=== PATIENT | female | born 1965 | race Caucasian/White ===

== ENCOUNTER 2024-09-14 10:29 | Emergency (ER) | payer BC, SELFPAY ==
--- NOTE | ~2024-09-14 | XR_ITS ---
EXAMINATION: XR chest 2V DATE: 09/14/2024 12:21 INDICATION: Back pain TECHNIQUE: PA and lateral views of the chest were obtained. COMPARISON: None FINDINGS: The lungs are clear with no focal airspace opacities, pulmonary edema, pleural effusion or pneumothor ax. The cardiomediastinal silhouette is normal. Surgical clips at the left axilla suggesting prior ly mph node dissection. Proximal tip in IVC filter projecting to the right of the L1-L2 disc space in ex pected position. IMPRESSION: 1. No acute cardiopulmonary disease. Reviewed, dictated and finalized at location A.
--- NOTE | ~2024-09-14 | CT_ITS ---
EXAMINATION: CT abdomen pelvis w con DATE: 09/14/2024 12:20 INDICATION: Flank pain TECHNIQUE: Computed tomography (CT) of the abdomen and pelvis was performed without intravenous contr ast. Automated exposure control and iterative reconstruction technique were employed. The dose-length product was 369.47 mGy-cm. COMPARISON: None FINDINGS: Lung bases are clear. Arch size is normal. No pericardial or pleural effusion. Liver, gallbladder, sp tracy, pancreas and bilateral adrenal glands are normal. There are small regions of cortical scarring at the both kidneys likely sequela prior infection or infarction. 1 cm left renal cyst. IVC filter wi th proximal tip at the level of the confluence with the left renal vein. Normal retrocecal appendix. Bowels are unremarkable with no abnormal wall thickening or obstruction. Bladder is normal. Calcified uterine fibroid. Bilateral adnexa are unremarkable. No free intraperitoneal gas or fluid. No patholo gically enlarged abdominal or pelvic lymphadenopathy. Partially visualized antegrade intramedullary r ods with interlocking intertrochanteric screws at the first proximal aspects of both femurs. Mild lum bar dextrocurvature with moderate to severe spondylosis. Transitional bilateral hypoplastic rib beari ng thoracolumbar segment and transitional lumbosacral segment, lumbar some the left and sacralized on the right. Old healed fractures of a couple upper right-sided lumbar transverse processes. IMPRESSION: 1. No acute intra-abdominal/pelvic process. 2. Small calcified uterine fibroid. 3. IVC filter in expected position. Reviewed, dictated and finalized at location A.
[2024-09-14 11:00] VITALS: BP 147/101; PULSE 72; RESP 16; TEMP 36.7; O2SAT 100
--- OUTSIDE RECORDS SUMMARY | 2024-09-14 11:02 | XMS_ITS | Patient Health Record ---
Author Organization [facility] Address [address] [place] [address] Care Team Providers Care Joint Maker Machine Name Role Phone Mely Brown Primary Care Provider Allergies No Known Allergies Reason For Referral No Information Medications Medication SIG (Take, Route, Frequency, Duration) Notes Start Date End Date Status busPIRone HCl 10 MG 1 tablet Orally three times per day for 30 days Would like medications delivered to [address] [place] [address] 05/10/2024 Active lamoTRIgine 25 MG 2 tablets Orally Once daily at bedtime (DC if rash) for 30 days Would like medications delivered to [address] [place] [address] Active traZODone HCl 150 MG 1 tablet at bedtime Orally Once a day for 30 days Would like medications delivered to [address] [place] [address] Active Eliquis 5 MG as directed Orally twice daily Active oxyCODONE HCl 5 MG/5ML 5 mL as needed Orally every 6 hrs Active Social History Tobacco Use: Social History Observation Description Date Details (start date - stop date) Current Smoker NA - NA Sex Assigned At : Social History Observation Description Sex Assigned At Female Dont use, Tobacco Use/Smoking Question Answer Notes Are you a current smoker Tobacco Control (Standard) Question Answer Notes Tobacco use: Current smoker How often do you smoke cigarettes? Every day How many cigarettes a day do you smoke? 6-10 Section Notes: Per [facility]: 01/08/2022 946.0 15 NA Andrew Faustin 12/21/2021 oxyCODONE HCL 946.0 15 5 MG/5 ML 94.60 [place], Andrew 12/21/2021 fentaNYL TRANSDERMAL SYSTEM 10.0 30 100 MCG/1 HR 240.0 [place], Andrew 12/07/2021 oxyCODONE HCL 500.0 14 5 MG/5 ML 53.57 [place], Andrew 12/07/2021 fentaNYL TRANSDERMAL SYSTEM 5.0 15 100 MCG/1 HR 240.0 [place]: 01/08/2022 946.0 15 NA [place], Andrew 12/21/2021 oxyCODONE HCL 946.0 15 5 MG/5 ML 94.60 [place], Andrew 12/21/2021 fentaNYL TRANSDERMAL SYSTEM 10.0 30 100 MCG/1 HR 240.0 [place], Andrew 12/07/2021 oxyCODONE HCL 500.0 14 5 MG/5 ML 53.57 ThorAndrew pedroza 12/07/2021 fentaNYL TRANSDERMAL SYSTEM 5.0 15 100 MCG/1 HR 240.0 Thor[place]: 01/08/2022 946.0 15 NA [place], Andrew 12/21/2021 oxyCODONE HCL 946.0 15 5 MG/5 ML 94.60 [place] Andrew 12/21/2021 fentaNYL TRANSDERMAL SYSTEM 10.0 30 100 MCG/1 HR 240.0 [place] Andrew 12/07/2021 oxyCODONE HCL 500.0 14 5 MG/5 ML 53.57 [place], Andrew 12/07/2021 fentaNYL TRANSDERMAL SYSTEM 5.0 15 100 MCG/1 HR 240.0 [facility] Andrew Problems Problem Type SNOMED Code ICD Code Onset Dates Problem Status W/U Status Risk Notes Problem Cannabis abuse (46775173) Cannabis abuse, uncomplicated (F12.10) Active confirmed Problem Anxiety (73826238) Anxiety (F41.9) Active confirmed Problem Generalized anxiety disorder (59952335) TOPHER (generalized anxiety disorder) (F41.1) 10/29/19 Active confirmed Problem History of psychiatric disorder (564924015) History of bipolar disorder (Z86.59) 10/29/19 Active confirmed reports history of diagnosis given age 17. Not medicated since mid 20s Problem Cellulitis (139931782) Cellulitis (L03.90) Active confirmed Problem Adult health examination (516732132) Routine adult health maintenance (Z00.00) Active confirmed Problem Homeless (93566797) Homeless (Z59.00) Active confirmed Encounters Encounter Location Date Provider Diagnosis [address] [address] 05/10/2024 Mely Brown TOPHRE (generalized anxiety disorder) F41.1 and History of bipolar disorder Z86.[address] [address] 06/18/2024 Mely Brwon Assessments Encounter Date Diagnosis (ICD Code) Assessment Notes Treatment Notes Treatment Clinical Notes Section Notes 05/10/2024 TOPHER (generalized anxiety disorder) (ICD-10 - F41.1) 05/10/2024 History of bipolar disorder (ICD-10 - Z86.59) reports history of diagnosis given age 17. Not medicated since mid 20s Plan Of Treatment No Information Insurance Providers Payer Name Payer Address Payer Phone Subscriber Number Group Number Insured Name Patient Relationship to Insured Coverage Start Date Coverage End Date [facility] [address] [place] [phone] [id number] 1 Tamar Armstrong Self - patient is the insured 2 [facility] [address] [place] [phone] [id number] 1 Tamar Armstrong Self - patient is the insured 2 Medical (General) History Medical History History ICD Code throat cancer anxiety depression Surgical History Surgery Date(Month/Year) Trachea 2021 Femor-rods and pins in both leg 1979,s reopen throat bilateral vein repair on legs Hospitalization History Reason Date(Month/Year) Cellulitis in right leg 2021 See surgeries
--- OUTSIDE RECORDS SUMMARY | 2024-09-14 11:02 | XMS_ITS | Data Portability ---
Author Organization [facility] Angl[facility] Address [address] [place] [address] Care Team Providers Care Junior Staff Accountant Name Role Phone YOON KIRKPATRICK Primary Care Provider Unavailabl e Assessment No assessment recorded. Plan of Treatment Reminders Order Date Submit Date Provider Last Modified By Organization Details Last Modified Time Details Appointments ANY 2024 10:15A Jeffrey Garcia MD Not available Not available Not available ANY 2024 03:45P Jeffrey Kirkpatrick MD Not available Not available Not available Lab TSH + free T4, serum 2023 024 ZEESHAN [facility], [address], [place] [address] [address], [place], [address], 03/07/2024 06:22:20 HbA1c (hemoglo bin A1c), blood 2023 024 [email or web address] In-Office Order, Internal Use Only DO Not Attach Compendium DO Not Attach Compendium, Do Not Delete/merge, [id number] 12/05/2023 11:43:30 TSH + free T4, serum 2023 024 ZEESHAN [facility], [address] [facility], [address], [place], [address], 12/08/2023 08:26:51 Referral otolaryn gologist referral 2024 025 delvin Sandoval MD, [address] [place], [address], 09/11/2024 11:04:10 endocrin ology referral - Was on thyroid suppleme nt two yrs ago. Recently restarte d 2023 024 tim Lema, [address], [place], [address], 07/31/2024 13:50:58 Procedures None recorded . Surgeries None recorded . Imaging None recorded . Medication Orders neomycin -polymyx in-hydro cris 3.5 mg-10,00 0 unit/mL- 1 % ear drops,bustamante sp 2024 [facility]AN [id number], [address] [place], [place], [id number], 06/26/2024 18:08:29 compound ed medicati on 2024 025 [facility], [address] [place], [place], [id number], 06/26/2024 17:16:17 dextrome thorphan -guaifen esin 10 mg-100 mg/5 mL oral syrup 2024 025 [facility], [address] [place], [place], [id number], 06/26/2024 17:16:16 albutero l sulfate HFA 90 mcg/actu ation aerosol inhaler 2024 025 [facility], [address] [place], [place], [id number], 06/26/2024 17:16:13 levothyr oxine 50 mcg tablet 2024 025 [facility], [address] [place], [place], [id number], 06/26/2024 17:16:14 compound ed medicati on 2023 025 [facility], [address] [place], [place], [id number], 06/26/2024 18:05:53 compound ed medicati on 2023 025 [facility], [address] [place], [place], [id number], 06/26/2024 18:06:38 Eliquis 5 mg tablet 2023 024 [facility]6410, [address] [place], [place], [id number], 03/06/2024 10:50:20 oxycodon e 10 mg tablet 2023 [facility]11137, [address] [place], [place], [id number], 12/05/2023 11:58:11 Patient TargetsNo targets recorded. Patient Instructions Encounter Date Encounter Id Patient Instructions Last Modified By Organization Details Last Modified Time 12/05/2023 [id number] learning about high blood sugar [email or web address] Not available 12/05/2023 11:43:27 hypothyroidism: care instructions [email or web address] Not available 12/05/2023 11:43:27 hepatitis C: car e instructions [email or web address] Not available 12/05/2023 11:43:27 learning about hepatitis C Not available 12/05/2023 11:43:27 03/06/2024 [id number] A healthy lifestyle: care instructions Not available 03/06/2024 13:19:42 hypothyroidism: care instructions [email or web address] Not available 03/06/2024 10:50:08 Reason for Referral Endocrinology Referral for H ypothyroidism Was on thyroid supplement two yrs ago. Recently restarted Referring Physician: Yoon Kirkpatrick, Internal Medicine, Encounter Date: 12/05/2023 City Manager Referral fo r Otitis externa Recent onset right ear pain similar to when laryngeal ca discovered in 2020 Referring Physician: Yoon Kirkpatrick, Internal Medicine, Encounter Date: 06/26/2024 Results Created Date Observation Date Name Description Value Unit Range Abnormal Flag Note LastModifiedBy Organization Detail LastModifiedTime 08/31/19 24 09/07/2023 COMPL IANCE DRUG WADE SIS, UR summary report (summary) FINAL ===== ===== ===== ===== ===== ===== ===== ===== ===== ===== ===== ===== ===== === TOXAS SURE COMP DRUG WADE SIS,U R ===== ===== ===== ===== ===== ===== ===== ===== ===== ===== ===== ===== ===== === Speci men Alert Note: Urina ry creat inine is low; abili ty to detec t some drugs may be compr omise d. Inter pret resul ts with cauti on. ===== ===== ===== ===== ===== ===== ===== ===== ===== ===== ===== ===== ===== === Test Resul t Flag Units Drug Prese nt Alcoh ol, Ethyl 0.043 g/dL Sourc es of ethyl alcoh ol inclu de alcoh olic bever ages or as a ferme ntati on produ ct of gluco se; gluco se was not detec hipolito in this speci men. Ethyl alcoh ol resul t shoul d be inter prete d in the chivo xt of all avail able clini josie and behav ioral infor matio n. Carbo xy-TH C 520 ng/mg creat Carbo xy-TH C is a metab olite of tetra hydro canna binol (THC) . Sourc e of THC is most commo nly herba l marij uana or marij uana- based produ cts, but THC is also prese nt in a sched uled presc ripti on medic ation . Trace amoun ts of THC can be prese nt in hemp and canna bidio l (CBD) produ cts. This test is not inten ded to disti nguis h betwe en delta -9-te trahy droca nnabi nol, the predo minan t form of THC in most herba l or marij uana- based produ cts, and delta -8-te trahy droca nnabi nol. ===== ===== ===== ===== ===== ===== ===== ===== ===== ===== ===== ===== ===== === Test Resul t Flag Units Ref Range Creat inine 10 L mg/dL >=20 ===== ===== ===== ===== ===== ===== ===== ===== ===== ===== ===== ===== ===== === Decla red Medic ation s: Medic ation list was not provi ded. ===== ===== ===== ===== ===== ===== ===== ===== ===== ===== ===== ===== ===== === For clini josie consu ltati on, pleas e call . ===== ===== ===== ===== ===== ===== ===== ===== ===== ===== ===== ===== ===== === Not Available [facility] ([facility]) [address] [facility], [place], [address], 09/07/2023 19:09:05 05/01/09/07/2023 COMPL IANCE DRUG WADE SIS, UR pdf . Not Available [facility] ([facility]) [address], [place], [address], 09/07/2023 19:09:05 09/19/19 24 09/19/2023 HCV GENOT YPE REFLE X NS5A please note: Commen t This test was devel oped and its perfo rmanc e fozia cteri stics deter mined by [facility]. It has not been clear ed or appro caitlyn by the U.S. Food and Drug Admin istra tion. The FDA has deter mined that such clear ance or appro daily is not neces mary. This test is used for clini josie purpo ses. It shoul d not be regar ded as inves tigat ional or for resea rch. Not Available [facility] [address], [place], [address], 09/25/2023 06:42:25 09/19/19 24 09/25/2023 HCV GENOT YPE REFLE X NS5A hepatitis C genotype 2b Not Available [facility] [address], [place], [address], 09/25/2023 06:42:25 09/19/19 24 09/25/2023 REFLE X TEST INFOR MATIO N reflex test information Commen t Refle x test not indic ated. Not Available [facility] [address], [place], [address], 09/25/2023 06:42:26 12/05/19 24 12/05/2023 HbA1c (hemo globi n A1c), blood HbA1c 5 Not Available In-Office Order Internal Use Only DO Not Attach Compendium DO Not Attach Compendium, Do Not Delete/merge, [id number] 12/05/2023 11:37:39 12/07/19 24 12/08/2023 TSH+F REE T4 TSH 56.000 uIU/m L 0.450- 4.500 above high normal Not Available [facility] ([facility]) [address] [place], [address], 12/08/2023 08:26:51 12/07/19 24 12/08/2023 TSH+F REE T4 T4,free(dire ct) 0.48 NG/dL 0.82-1 .77 below low normal Not Available [facility] ([facility]) [address] [place], [address], 12/08/2023 08:26:51 03/06/20 24 03/07/2024 TSH+F REE T4 TSH 13.100 uIU/m L 0.450- 4.500 above high normal Not Available [facility] ([facility]) [address] [place], [address], 03/07/2024 06:22:20 03/06/20 24 03/07/2024 TSH+F REE T4 T4,free(dire ct) 0.96 NG/dL 0.82-1 .77 Not Available [facility] ([facility]) [address] [place], [address], 03/07/2024 06:22:20 02/27/2002/24/2024 MAMMO , scree drake, bilat eral No observ ation record ed. [email or web address] [facility] [address] [place], [address], 03/09/2024 17:21:57 Result Notes None recorded. Problems Name Problem SNOMED Code Status Onset Date Resolution Date Notes Provider Name and Address Organization Details Recorded Time History of malignan t neoplasm of larynx 644869586 Active 2020 Yoon Kirkpatrick MD Attn: Aminah gonzalez,[address] [place], [address], [facility] 2 12:19:23 History of total hysterec shreya 750249805 Active 2021 Yoon Kirkpatrick MD Attn: Aminah gonzalez,[address] [place], [address], [place] [facility] 2 12:20:08 Excision of right lobe of thyroid gland Completed 202010/21/2021 Removal Reason: supraglo ttic malignan cy Yoon Kirkpatrick MD Attn: Aminah gonzalez,[address], [place], [address], [place] [facility] 2 12:23:48 Constipa tion 16524033 Active 2021 Yoon Kirkpatrick MD Attn: Aminah gonzalez,[address] [facility], [place], [address], [place] [facility] 2 12:36:26 History of deep vein thrombos is 632198754 Active 2021 Yoon Kirkpatrick MD Attn: Aminah gonzalez,[address] [facility], [place], [address], [place] [facility] 2 12:37:29 Excessiv e salivati on 82921152 Active 2021 Yoon Kirkpatrick MD Attn: Aminah gonzalez,[address] [facility], [place], [address], [place] [facility] 2 12:44:59 Chronic postoper ative pain 59385559773 9103 Active 2021 Yoon Kirkpatrick MD Attn: Aminah gonzalez,[address] [facility], [place], [address], [place] [facility] 2 12:46:12 Cough 01849024 Active 2022 Yoon Kirkpatrick MD Attn: Barrysheron gonzalez,[address] [facility], [place], [address], [place] [facility] 3 12:15:54 Medicati on monitori ng Active 2022 Yoon Kirkpatrick MD Attn: Aminah lisa,[address] [facility], [place], [address], [place] [facility] 3 17:40:25 Left flank pain 738374374 Active 2022 Yoon Kirkpatrick MD Attn: Aminah gonzalez,[address] [facility], [place], [address], [place] [facility] 3 11:21:03 Allergic rhinitis 67191916 Active 2022 Yoon Kirkpatrick MD Attn: Barrysheron gonzalez,[address] [facility], [place], [address], [place] [facility] 3 01:00:04 [facility] y 082498443 Active 2023 Yoon Kirkpatrick MD Attn: Barrysheron gonzalez,[address] [facility], [place], [address], [place] [facility] 4 11:29:40 Venous varices 553701771 Active 2023 Yoon Kirkpatrick MD Attn: Aminah lisa,[address] [facility], [place], [address], [place] [facility] 4 11:34:02 Hypothyr oidism 43486251 Active 2023 Yoon Kirkpatrick MD Attn: Barrysheron gonzalez,[address] [facility], [place], [address], [place] [facility] 4 17:13:35 Increase d liver function 97124914 Active 2023 Yoon Kirkpatrick MD Attn: Aminah lisa,[address] [facility], [place], [address], [place] [facility] 4 17:20:46 Hypergly cemia 36866910 Active 2023 Yoon Kirkpatrick MD Attn: Aminah gonzalez,[address] [facility], [place], [address], [place] [facility] 4 11:37:24 Active immuniza tion Active 2024 Yoon Kirkpatrick MD Attn: Aminah gonzalez,[address] [facility], [place], [address], [place] [facility] 5 17:15:47 Otitis externa 0698818 Active 2024 Yoon Kirkpatrick MD Attn: Accountin g,[address] [facility], [place], [address], [place] [facility] 5 18:07:09 Acute sinusiti s 87059067 Active Raul Thao PA-C Attn: Accountin g,[address] [facility], [place], [place], [address] [place] [address], [place] [facility] 5 10:18:50 Chronic obstruct sesar pulmonar y disease 23830337 Active Raul Thao PA-C Attn: Accountin g,[address] [facility], [place], [address], [place] [facility] 5 10:18:50 Tobacco user 790220118 Active Raul Thao PA-C Attn: Accountin g,[address] [facility], [place], [place], [address] [place] [address], [place] [facility] 5 10:18:50 Knee pain Active Raul Thao PA-C Attn: Accountin g,[address] [facility], [place], [address], [place] [facility] 5 10:18:50 Essentia l hyperten daria 61763636 Active Raul Thao PA-C Attn: Accountin g,[address] [facility], [place], [address], [place] [facility] 5 10:18:50 Viral hepatiti s C 85478686 Active Raul Thao PA-C Attn: Accountin g,[address] [facility], [place], [address], [place] [facility] 5 10:18:50 Insomnia 166509296 Active Raul Thao PA-C Attn: Accountin g,[address] [facility], [place], [address], [place] [facility] 5 10:18:50 Problem Notes None recorded. Procedures Surgical History Date Name Laterality Status Provider Name and Address Organization Details Recorded Time 09/20/19 24 Flexible Laryngoscopy completed Manas Garcia MD [address] [place], [address], [place] - COUNTS INCLUDE 234 BEDS AT [facility] 09/20/2023 11:06:35 Joint Replacement completed Shayla Mendieta [place] 10/25/2014 09:55:15 Caesarean Section completed Shayla Mendieta [place] 10/25/2014 09:55:15 Imaging Results Imaging Date Name Status LastModified by Organiz ation Details LastModified Time 02/24/2024 MAMMO, screening, bilateral completed jnicolrn [facility] [address], [place], [address], 03/09/2024 17:21:57 Procedure Notes None recorded. Medical Equipment None Reported. Allergies No known drug allergies Medications Name Sig Start Date Stop Date Status Note LastModified by Organization Details LastModified Time compounded medication SWISH AND SWALLOW 15 ML BY MOUTH EVERY 2 HOURS NEEDED 06/26 completed Not Available Not Available Not Available antacid/dip hen/lido 111 mouthwas SWISH AND SWALLOW 15 ML BY MOUTH EVERY 2 HOURS NEEDED active Not Available Not Available No t Available compounded medication SWISH AND SWALLOW 15 ML BY MOUTH EVERY 2 HOURS NEEDED 06/26 completed Not Available Not Available Not Available mdryl12.5mg /5mlantacli do2%111 SWISH AND SWALLOW 15 ML BY MOUTH EVERY 2 HOURS NEEDED 09/21 completed Not Available Not Available Not Available compounded medication SWISH AND SWALLOW 15 ML BY MOUTH EVERY 2 HOURS NEEDED 06/26 completed Not Available Not Available Not Available compounded medication SWISH AND SWALLOW 15 ML BY MOUTH EVERY 2 HOURS NEEDED 2024 active Not Available Not Available Not Avai lable amoxicillin 500 mg capsule TAKE 1 CAPSULE BY MOUTH FOUR TIMES DAILY 10/21 completed Not Available Not Available Not Available Protonix 40 mg tablet,danika yed release Take 1 tablet every day by oral route before meals. 07/08 completed Not Available Not Available Not Available doxycycline hyclate 100 mg capsule 03/09 /2023 completed Not Available Not Available Not Available clindamycin HCl 300 mg capsule TAKE 1 CAPSULE BY MOUTH EVERY 6 HOURS 07/08 completed Not Available Not Available Not Available trazodone 50 mg tablet TAKE ONE TABLET BY MOUTH EVERY NIGHT AT BEDTIME NEEDED FOR SLEEP 03/06 completed Not Available Not Available Not Available prednisone 20 mg tablet TAKE 2 TABLETS BY MOUTH TWICE DAILY FOR 2 DAYS, THEN 1 TWICE DAILY FOR 5 DAYS, THEN 1/2 TWICE DAILY FOR 2 DAYS, THEN 1/2 ON DAY 10 10/21 completed Not Available Not Available Not Available hydroxyzine pamoate 50 mg capsule active Not Available Not Available N ot Available oxycodone 5 mg/5 mL oral solution TAKE 10 ML BY MOUTH FOUR TIMES DAILY NEEDED 09/21 completed Not Available Not Available Not Available bacitracin zinc 500 unit/gram topical ointment 07/08 completed Not Available Not Available Not Available ciprofloxac in 500 mg tablet Take 1 tablet every 12 hours by oral route for 10 days. 10/21 completed Not Available Not Available Not Available sulfamethox azole 800 mg-trimetho prim 160 mg tablet TAKE 1 TABLET BY MOUTH TWICE DAILY 03/18 completed Not Available Not Available Not Available quetiapine 100 mg tablet 09/21 completed Not Available Not Available Not Available Depo-Medrol 80 mg/mL suspension for injection 10/21 completed Not Available Not Available Not Available levothyroxi ne 25 mcg tablet TAKE 1 TABLET BY MOUTH EVERY DAY active Not Available Not Available No t Available lamotrigine 25 mg tablet active Not Available Not Available Not Available amoxicillin 400 mg-potassiu m clavulanate 57 mg/5 mL oral suspension TAKE 5 ML BY MOUTH TWICE DAILY FOR 10 DAYS 07/08 completed Not Available Not Available Not Available propranolol 10 mg tablet 07/08 completed Not Available Not Available Not Available fentanyl 100 mcg/hr transdermal patch APPLY 1 PATCH TOPICALLY TO THE SKIN EVERY 72 HOURS 07/08 completed Not Available Not Available Not Available trazodone 100 mg tablet 07/08 completed Not Available Not Available Not Available baclofen 10 mg tablet Take 1 tablet 3 times a day by oral route as needed for 30 days. 10/21 completed Not Available Not Available Not Available benzonatate 100 mg capsule TAKE 1 CAPSULE BY MOUTH THREE TIMES DAILY NEEDED 08/03 completed Not Available Not Available Not Available hydrocortis one 1 % topical cream APPLY TOPICALLY TO THE AFFECTED AREA TWICE DAILY 07/08 completed Not Available Not Available Not Available levothyroxi ne 50 mcg tablet TAKE 1 TABLET BY MOUTH EVERY DAY active Not Available Not Available No t Available trazodone 150 mg tablet 03/06 completed Not Available Not Available Not Available lisinopril 10 mg tablet Take 1 tablet every day by oral route in the morning for 30 days. 10/21 completed Not Available Not Available Not Available warfarin 5 mg tablet TAKE 1 TABLET BY MOUTH EVERY DAY 07/08 completed Not Available Not Available Not Available docusate sodium 100 mg capsule TAKE 1 CAPSULE BY MOUTH EVERY DAY 07/08 completed Not Available Not Available Not Available hydroxyzine HCl 25 mg tablet TAKE 1 TABLET BY MOUTH EVERY 6 HOURS NEEDED FOR ANXIETY OR ITCHING 07/08 completed Not Available Not Available Not Available mupirocin 2 % topical ointment APPLY TO AFFECTED AREA TWICE DAILY 07/08 completed Not Available Not Available Not Available fentanyl 25 mcg/hr transdermal patch APPLY 1 PATCH TOPICALLY TO THE SKIN EVERY 72 HOURS FOR 15 DAYS 07/08 completed Not Available Not Available Not Available ibuprofen 100 mg/5 mL oral suspension 07/08 completed Not Available Not Available Not Available albuterol sulfate HFA 90 mcg/actuati on aerosol inhaler INHALE 2 PUFFS BY MOUTH FOUR TIMES DAILY NEEDED active Not Available Not Available No t Available propranolol 20 mg tablet 09/21 completed Not Available Not Available Not Available fentanyl 75 mcg/hr transdermal patch APPLY 1 PATCH TOPICALLY TO THE SKIN EVERY 72 HOURS 09/21 completed Not Available Not Available Not Available cefdinir 300 mg capsule TAKE 1 CAPSULE BY MOUTH EVERY 12 HOURS 12/04 completed Not Available Not Available Not Available fluticasone propionate 50 mcg/actuati on nasal spray,suspe nsion SHAKE LIQUID AND USE 2 SPRAYS IN EACH NOSTRIL DAILY active Not Available Not Available No t Available sertraline 50 mg tablet 07/08 completed Not Available Not Available Not Available naproxen 500 mg tablet TAKE 1 TABLET BY MOUTH EVERY 12 HOURS WITH FOOD OR MILK 10/21 completed Not Available Not Available Not Available neomycin-po lymyxin-hyd rocort 3.5 mg-10,000 unit/mL-1 % ear drops,susp INSTILL 4 DROPS INTO AFFECTED RIGHT EAR(S) BY OTIC ROUTE 3 TIMES PER DAY active Not Available Not Available No t Available Antacid Regular Strength 200 mg-200 mg-20 mg/5 mL oral suspension active Not Available Not Available N ot Available Symbicort 160 mcg-4.5 mcg/actuati on HFA aerosol inhaler Inhale 2 puffs twice a day by inhalatio n route as directed for 30 days. 10/21 completed Not Available Not Available Not Available Mucinex 1,200 mg tablet, extended release TAKE 1 TABLET BY MOUTH TWICE DAILY 07/08 completed Not Available Not Available Not Available oxycodone 10 mg tablet Take 1 tablet 3 times a day by oral route as needed. 2024 active Not Available Not Available Not Avai lable Eliquis 5 mg tablet Take 1 tablet twice a day by oral route. 2023 active Not Available Not Available Not Avai lable M-Dryl 12.5 mg/5 mL oral liquid SWISH AND SPIT 10ML EVERY 4-6 HOURS NEEDED 12/04 completed Not Available Not Available Not Available Chest Congestion Relief DM 10 mg-100 mg/5 mL oral syrup TAKE 10 ML BY MOUTH THREE TIMES DAILY active Not Available Not Available No t Available Vitals Date Recorded Body height Body mass index (BMI) Body weight Heart rate Body temperature Pain severity - 0-10 verbal numeric rating [Score] - Reported Systolic blood pressure Diastolic blood pressure Provider Name and Address Organization Details Last Updated DateTime 4 163.83 cm 26.4 kg/m2 04201.4 1 g 62 /min 97.8 [degF] 0 143 mm[Hg] 79 mm[Hg] Modesta Reveles [place] - [facility] 4 10:56:24 Date Recorded Body height Body mass index (BMI) Body weight Body temperature Heart rate Oxygen saturation Oxygen saturation in Arterial blood by Pulse oximetry Respiratory rate Pain severity - 0-10 verbal numeric rating [Score] - Reported Systolic blood pressure Diastolic blood pressure Provider Name and Address Organization Details Last Updated DateTime 4 163.83 cm 26 kg/m2 04862.2 2 g 97.8 [degF] 60 /min 98 % 98 % 18 /min 0 149 mm[Hg] 80 mm[Hg] Jesica Prakash MA [facility] 4 11:15:16 Date Recorded Body height Body mass index (BMI) Body weight Oxygen saturation Oxygen saturation in Arterial blood by Pulse oximetry Heart rate Systolic blood pressure Diastolic blood pressure Provider Name and Address Organization Details Last Updated DateTime 4 163.83 cm 26 kg/m2 38997.2 2 g 98 % 98 % 60 /min 130 mm[Hg] 82 mm[Hg] Ankita Ryan MA [facility] 4 10:51:04 Date Recorded Body height Body mass index (BMI) Body weight Heart rate Oxygen saturation Oxygen saturation in Arterial blood by Pulse oximetry Systolic blood pressure Diastolic blood pressure Provider Name and Address Organization Details Last Updated DateTime 4 163.83 cm 25.9 kg/m2 80240.0 7 g 77 /min 96 % 96 % 118 mm[Hg] 74 mm[Hg] Reymundo Thao MA [facility] 4 10:14:38 Date Recorded Body height Body mass index (BMI) Body weight Heart rate Body temperature Oxygen saturation Oxygen saturation in Arterial blood by Pulse oximetry Systolic blood pressure Diastolic blood pressure Provider Name and Address Organization Details Last Updated DateTime 5 163.83 cm 26 kg/m2 12320.2 2 g 61 /min 98.1 [degF] 99 % 99 % 138 mm[Hg] 84 mm[Hg] Kirsten Laurent MA [facility] 5 16:19:20 Social History Question Answer Notes LastModified by Organizat ion Details LastModified Time Tobacco Smoking Status Former Smoker Reymundo Thao MA [facility] 03/06/2024 10:10:22 Do You Have An Advance Directive? No Information not available 10/07/2023 Are You Blind Or Do You Have Difficulty Seeing? No Information not available 10/25/2014 What Is Your Level Of Caffeine Consumption? Heavy Information not available 10/25/2014 How Much Tobacco Do You Chew? None Information not available 10/25/2014 Are You Deaf Or Do You Have Serious Difficulty Hearing? No Information not available 10/25/2014 What Type Of Diet Are You Following? REGULAR Information not available 10/25/2014 Which Illicit Or Recreational Drugs Have You Used? No Information not available 10/25/2014 Education 9 Information no t available 10/25/2014 Are There Any Guns Present In Your Home? No Information not available 10/25/2014 Hard Of Hearing Or Deaf In One Or Both Ears? No Information not available 10/25/2014 Legally Blind In One Or Both Eyes? No Information no t available 10/25/2014 Marital Status Single Informatio n not available 10/25/2014 Do You Have A Medical Power Of Auto Wheel Alignment Specialist? Yes Sister Information not available 10/07/2023 What Was The Date Of Your Most Recent Tobacco Screening? 03/06/2024 Information not available 03/06/2024 Performs Monthly Self-breast Exam? No Information no t available 10/25/2014 Seat Belts Used Routinely Yes Information not available 10/25/2014 Smoke Alarm In Home Yes Information not available 10/25/2014 Do You Have Smoke And Carbon Monoxide Detectors In Your Home? Yes Information not available 10/07/2023 Are You Passively Exposed To Smoke? No Information no t available 10/07/2023 How Much Tobacco Do You Smoke? 0.25 PPD Information not available 10/21/2021 General Stress Level High Information not available 10/25/2014 Do You Use Sunscreen Routinely? Yes Information not available 10/25/2014 Has Tobacco Cessation Counseling Been Provided? Yes Information not available 07/08/2022 On What Date Was Tobacco Cessation Counseling Provided? 03/06/2024 Information not available 03/06/2024 Do You Have Difficulty Walking Or Climbing Stairs? Yes Information not available 10/25/2014 Sex: Unknown Functional Status Question Answer Note LastModified by Organizat ion Details LastModified Time Do you or have you ever used any other forms of tobacco or nicotine? No Information not available 07/08/2022 What is your level of alcohol consumption? Occasional Information not available 10/25/2014 Do you have difficulty doing errands alone? No Information not available [id number]|2024-09-14 11:09:00|2024-09-14 11:09:00|ED_ITS|HERMINIO|Health Information Management|[id number]|"HPI - General Adult General Chief complaint: Abdominal Pain Stated complaint: abd pain Time Seen by Provider: 09/14/24 10:42 History of Present Illness HPI narrative: Tamar Armstrong is a 58 y/o female with past medical history of throat cancer status post trach placement in remission, hypothyroidism and previous lower extremity DVT which she is on blood thinners for. She presents today with complaints of having right flank pain that started out of nowhere 2 days ago and she would like the pain is getting worse she reach describes the pain as throbbing and radiating around to her abdomen. She denies any falls any nose trauma or exerting activities prior to this. She denies any spinal tenderness fevers or chills. She denies any urinary symptoms last bowel movement was yesterday and normal. She denies any nausea or vomiting. Related Data Allergies Allergy/AdvReac Type Severity Reaction Status Date / Time No Known Allergies Allergy Verified 09/14/24 11:05 Review of Systems 2 Review of Systems: All systems reviewed & are unremarkable except as noted in HPI and below Exam 2 Narrative: GENERAL: well-nourished, and in no acute distress. HEAD: Normocephalic, atraumatic. EYES: PERRLA and EOMI. ENT: Nares clear, no rhinorrhea or epistaxis. Mucous membranes moist. Oropharynx without tonsillar hypertrophy exudate or other lesions. NECK: Supple. No adenopathy or masses. No carotid bruits or JVD CHEST: Clear to auscultation. No respiratory distress. No wheezes rales or rhonchi HEART: Regular rate and rhythm. No murmur heard. Normal peripheral pulses. ABDOMEN: Soft, nontender, nondistended, normal active bowel sounds. + right flank/ CVA tenderness EXTREMITIES: Normal range of motion. No edema. SKIN: Warm, dry, no rash. NEURO: No focal deficits. Alert and oriented x3. PSYCH: Normal mood and affect. Course Vital Signs Vital signs: Vital Signs Temperature 36.7 C 09/14/24 11:00 Pulse Rate 72 09/14/24 11:00 Respiratory Rate 16 09/14/24 11:00 Blood Pressure 147/101 H 09/14/24 11:00 Pulse Oximetry 100 09/14/24 11:00 Oxygen Delivery Room Air 09/14/24 11:00 Temperature 36.7 C 09/14/24 11:00 Pulse Rate 77 09/14/24 13:30 Respiratory Rate 18 09/14/24 13:30 Blood Pressure 153/96 H 09/14/24 13:30 Pulse Oximetry 98 09/14/24 13:30 Oxygen Delivery Room Air 09/14/24 11:00 Medical Decision Making MDM Narrative Medical decision making narrative: 58-year-old female with right flank/right CVA tenderness with palpation states pain started 2 days ago in our now throbbing getting worse she denies any urinary symptoms with this denies any trauma or known injury Concern for obstructing ureteral lithiasis, pyelonephritis, muscle spasm, appendicitis Plan to check Labs and CT while treating her pain with morphine CBC-no leukocytosis hemodynamically stable CMP-sodium 135 otherwise unremarkable LIpase- negative UA- trace leuks, 1+ bacteria CT IMPRESSION: 1. No acute intra-abdominal/pelvic process. 2. Small calcified uterine fibroid. 3. IVC filter in expected position. chest XR . No acute cardiopulmonary disease. Patient re-evaluated and states that she is feeling better she is updated on her results of her labs and her CT scan and plan to start treatment for urinary tract infection. She states that she did need anything for pain she has pain medication at home she should need it she has follow-up with her primary care doctor encouraged to return for any worsening symptoms as her symptoms should only improve from here on out. Medical Records Medical records reviewed: Yes I reviewed the external patient's medical records. Vital Signs Vital Signs: Vital Signs Temperature 36.7 C 09/14/24 11:00 Pulse Rate 72 09/14/24 11:00 Respiratory Rate 16 09/14/24 11:00 Blood Pressure 147/101 H 09/14/24 11:00 Pulse Oximetry 100 09/14/24 11:00 Oxygen Delivery Room Air 09/14/24 11:00 Temperature 36.7 C 09/14/24 11:00 Pulse Rate 77 09/14/24 13:30 Respiratory Rate 18 09/14/24 13:30 Blood Pressure 153/96 H 09/14/24 13:30 Pulse Oximetry 98 09/14/24 13:30 Oxygen Delivery Room Air 09/14/24 11:00 Vitals reviewed by me Lab Data Lab results reviewed: Yes I reviewed the patient's lab results. 09/14/24 10:57 09/14/24 10:57 Labs: Lab Results 09/14/24 09/14/24 Range/Units 10:56 10:57 WBC 5.8 (4.5-10.0) K/mm3 RBC 4.33 (4.2-5.4) M/mm3 Hgb 13.8 (12.0-15.0) g/dL Hct 40.3 (37.0-47.0) % MCV 93.1 (80-100) fl MCH 31.9 (26-34) pg MCHC 34.2 (32-36) g/dl RDW 12.5 (11.5-14.5) % Plt Count 270 (150-375) k/mm3 MPV 9.0 (7.4-10.4) fl Immature Gran % (Auto) 0.3 (0-0.5) % Neut % (Auto) 74.4 H (45.5-73.1) % Lymph % (Auto) 12.4 L (18.3-44.2) % [place] % (Auto) 10.5 H (2.6-8.5) % Eos % (Auto) 1.0 (0-4.4) % Baso % (Auto) 1.4 H (0.2-1.2) % Lymph # (Auto) 0.72 L (0.9-3.2) K/mm3 [place] # (Auto) 0.6 (0.1-0.6) K/mm3 Eos # (Auto) 0.1 (0-0.3) K/mm3 Baso # (Auto) 0.1 (0.0-0.1) K/mm3 Abs Immat Gran (auto) 0.02 (0.00-0.031) K/mm3 Absolute Neuts (auto) 4.3 (1.3-6.7) K/mm3 Absolute Nucleated RBC 0.000 (0.0-0.012) K/mm3 Nucleated RBC % 0.0 (0.0-0.2) % Sodium 135 L (137-145) mmol/L Potassium 3.7 (3.4-5.0) mmol/L Chloride 99 (98-107) mmol/L Carbon Dioxide 27 (22-30) mmol/L Anion Gap 9 (4-12) mmol/L BUN 10 (7-17) mg/dL Creatinine 0.63 L (0.7-1.0) mg/dL Estim Creat Clear Calc 77 ml/min Estimated GFR > 60 (59 - ) Glucose 92 (65-110) mg/dL Calcium 8.9 (8.4-10.2) mg/dL Total Bilirubin 1.3 (0.2-1.3) mg/dL AST 53 H (14-36) U/L ALT 33 (6-35) U/L Alkaline Phosphatase 59 (38-126) U/L Total Protein 9.0 H (6.3-8.2) g/dL Albumin 4.5 (3.5-5.1) g/dL Lipase 106 (23-300) U/L Urine Color Dark yellow (Yellow) Urine Appearance Clear (Clear) Urine pH 5.5 (5.0-9.0) Ur Specific [place] 1.017 (1.001-1.035) Urine Protein Negative (Negative) mg/dL Urine Glucose (UA) Negative (Negative) mg/dL Urine Ketones Negative (Negative) mg/dL Ur Blood (Man) Trace (Negative) Urine Nitrate Negative (Negative) Urine Bilirubin Negative (Negative) Urine Urobilinogen 1.0 (<2.0) mg/dL Leukocyte Esterase Rfl Trace H (Negative) KELLY/UL Urine RBC 0-2 (0-2) /hpf Urine WBC 0-5 (0-3) /hpf Ur Squamous Epith Cells Few (Few) /hpf Urine Bacteria 1+ H /hpf Urine Casts 0-2 Imaging Data Radiologist's impression: Impressions Abdomen/Pelvis CT 09/14/24 12:23 IMPRESSION: 1. No acute intra-abdominal/pelvic process. 2. Small calcified uterine fibroid. 3. IVC filter in expected position. Chest X-Ray 09/14/24 12:23 IMPRESSION: 1. No acute cardiopulmonary disease. Discharge Plan Discharge Clinical Impression: Urinary tract infection Qualifiers: Urinary tract infection type: acute cystitis Hematuria presence: without hematuria Qualified Code(s): N30.00 - Acute cystitis without hematuria Patient Disposition: Home Condition: Stable Instructions: Antibiotic Form Additional Instructions: Start taking the Cephalexin twice daily for 1 week Follow up with your PCP as scheduled IF you develop any worsening symptoms or concerns return to the ER Patient Language: Upper Sorbian Prescriptions: New cephalexin 500 mg capsule 500 mg PO Q12H Qty: 14 0RF Follow-up/Referrals: UNKNOWN,DOCTOR [Primary Care Provider] - Time of Disposition: 13:06 "
--- OUTSIDE RECORDS SUMMARY | 2024-09-14 11:02 | XMS_ITS ---
Author Organization [facility]ly [facility] Address [address] [place] [address] Care Team Providers Care Traffic Circuit Engineer Name Role Phone Mely Brown Primary Care Provider REASON FOR VISIT 4 week F/U Medications Medication SIG (Take, Route, Frequency, Duration) Notes Start Date End Date Status busPIRone HCl 10 MG 1 tablet Orally three times per day for 30 days Would like medications delivered to [address] [place] [address] 05/10/2024 Active lamoTRIgine 25 MG 2 tablets Orally Once daily at bedtime (DC if rash) for 30 days Would like medications delivered to [address] [place] [address] Active traZODone HCl 150 MG 1 tablet at bedtime Orally Once a day for 30 days Would like medications delivered to [address] [place] [address] Active Eliquis 5 MG as directed Orally twice daily Active oxyCODONE HCl 5 MG/5ML 5 mL as needed Orally every 6 hrs Active Social History Sex Assigned At : Social History Observation Description Sex Assigned At Female Encounters Encounter Location Date Provider Diagnosis [address] [place] [address] 06/18/2024 Mely Brown Plan Of Treatment No Information Progress Notes * Tamar ARMSTRONGDOB:1965 ( 58 yo F)Acc No.[id number]:06/18/2024 UNLOCKED PROGRESS NOTE Patient: Tamar HOGAN Provider: NAHID Lynn :1965 A ge:58 Y S ex:Female Date:06/18/2024 Address:[address] [place], [place] [id number] Subjective: * Chief Complaints: * 1 . 4 week F/U. * Medical History: * Medications: T aking oxyCODONE HCl 5 MG/5ML Solution 5 mL as needed Orally every 6 hrs , Taking Eliquis 5 MG Tablet as directed Orally twice daily , Taking traZODone HCl 150 MG Tablet 1 tablet at bedtime Orally Once a day , Notes to Pharmacist: Would like medications delivered to [address] [place] [address], Taking lamoTRIgine 25 MG Tablet 2 tablets Orally Once daily at bedtime (DC if rash) , Notes to Pharmacist: Would like medications delivered to [address] [place] [address], Taking busPIRone HCl 10 MG Tablet 1 tablet Orally three times per day , Notes to Pharmacist: Would like medications delivered to [address] [place] [address] Objective: * Vitals: Assessment: Plan: * Treatment: * * Electronic signature of Hailey Brown on 09/14/2024 at 11:02 AM CDT Sign off status: Pending * Provider: NAHID Lynn Date: 06/18/2024 Generated for [place] slade/Alpesh/Kevin on: 0 09/14/2024 11:02 AM CDT
--- OUTSIDE RECORDS SUMMARY | 2024-09-14 11:02 | XMS_ITS | CONTINUITY OF CARE DOCUMENT ---
Author Name azael addison Address Unknown Organization [facility] Address [id number] [place] [address] [address] [place] [address] Phone [phone] Care Team Providers Care Stave Cutting Supervisor Name Role Phone Conner VICK, Ronnie Unavailable HECTOR FLEMING MD Unavailable [phone] HECTOR FLEMING MD Unavailable [phone] INSURANCE PROVIDERS Payer name Policy type / Coverage type [place] red green party ID [facility] [id number]
--- NOTE | 2024-09-14 11:09 | ED.GENADULT ---
HPI - General Adult General Chief complaint: Abdominal Pain Stated complaint: abd pain Time Seen by Provider: 09/14/24 10:42 History of Present Illness HPI narrative: Tamar Armstrong is a 58 y/o female with past medical history of throat cancer status post trach placement in remission, hypothyroidism and previous lower extremity DVT which she is on blood thinners for. She presents today with complaints of having right flank pain that started out of nowhere 2 days ago and she would like the pain is getting worse she reach describes the pain as throbbing and radiating around to her abdomen. She denies any falls any nose trauma or exerting activities prior to this. She denies any spinal tenderness fevers or chills. She denies any urinary symptoms last bowel movement was yesterday and normal. She denies any nausea or vomiting. Related Data Allergies Allergy/AdvReac Type Severity Reaction Status Date / Time No Known Allergies Allergy Verified 09/14/24 11:05 Review of Systems Review of Systems: All systems reviewed & are unremarkable except as noted in HPI and below Exam Narrative: GENERAL: well-nourished, and in no acute distress. HEAD: Normocephalic, atraumatic. EYES: PERRLA and EOMI. ENT: Nares clear, no rhinorrhea or epistaxis. Mucous membranes moist. Oropharynx without tonsillar hypertrophy exudate or other lesions. NECK: Supple. No adenopathy or masses. No carotid bruits or JVD CHEST: Clear to auscultation. No respiratory distress. No wheezes rales or rhonchi HEART: Regular rate and rhythm. No murmur heard. Normal peripheral pulses. ABDOMEN: Soft, nontender, nondistended, normal active bowel sounds. + right flank/ CVA tenderness EXTREMITIES: Normal range of motion. No edema. SKIN: Warm, dry, no rash. NEURO: No focal deficits. Alert and oriented x3. PSYCH: Normal mood and affect. Course Vital Signs Vital signs: Vital Signs Temperature 36.7 C 09/14/24 11:00 Pulse Rate 72 09/14/24 11:00 Respiratory Rate 16 09/14/24 11:00 Blood Pressure 147/101 H 09/14/24 11:00 Pulse Oximetry 100 09/14/24 11:00 Oxygen Delivery Room Air 09/14/24 11:00 Temperature 36.7 C 09/14/24 11:00 Pulse Rate 77 09/14/24 13:30 Respiratory Rate 18 09/14/24 13:30 Blood Pressure 153/96 H 09/14/24 13:30 Pulse Oximetry 98 09/14/24 13:30 Oxygen Delivery Room Air 09/14/24 11:00 Medical Decision Making [facility] Narrative Medical decision making narrative: 58-year-old female with right flank/right CVA tenderness with palpation states pain started 2 days ago in our now throbbing getting worse she denies any urinary symptoms with this denies any trauma or known injury Concern for obstructing ureteral lithiasis, pyelonephritis, muscle spasm, appendicitis Plan to check Labs and CT while treating her pain with morphine CBC-no leukocytosis hemodynamically stable CMP-sodium 135 otherwise unremarkable LIpase- negative UA- trace leuks, 1+ bacteria CT IMPRESSION: 1. No acute intra-abdominal/pelvic process. 2. Small calcified uterine fibroid. 3. IVC filter in expected position. chest XR . No acute cardiopulmonary disease. Patient re-evaluated and states that she is feeling better she is updated on her results of her labs and her CT scan and plan to start treatment for urinary tract infection. She states that she did need anything for pain she has pain medication at home she should need it she has follow-up with her primary care doctor encouraged to return for any worsening symptoms as her symptoms should only improve from here on out. Medical Records Medical records reviewed: Yes I reviewed the external patient's medical records. Vital Signs Vital Signs: Vital Signs Temperature 36.7 C 09/14/24 11:00 Pulse Rate 72 09/14/24 11:00 Respiratory Rate 16 09/14/24 11:00 Blood Pressure 147/101 H 09/14/24 11:00 Pulse Oximetry 100 09/14/24 11:00 Oxygen Delivery Room Air 09/14/24 11:00 Temperature 36.7 C 09/14/24 11:00 Pulse Rate 77 09/14/24 13:30 Respiratory Rate 18 09/14/24 13:30 Blood Pressure 153/96 H 09/14/24 13:30 Pulse Oximetry 98 09/14/24 13:30 Oxygen Delivery Room Air 09/14/24 11:00 Vitals reviewed by me Lab Data Lab results reviewed: Yes I reviewed the patient's lab results. 09/14/24 10:57 09/14/24 10:57 Labs: Lab Results 09/14/24 09/14/24 Range/Units 10:56 10:57 WBC 5.8 (4.5-10.0) K/mm3 RBC 4.33 (4.2-5.4) M/mm3 Hgb 13.8 (12.0-15.0) g/dL Hct 40.3 (37.0-47.0) % MCV 93.1 (80-100) fl MCH 31.9 (26-34) pg MCHC 34.2 (32-36) g/dl RDW 12.5 (11.5-14.5) % Plt Count 270 (150-375) k/mm3 MPV 9.0 (7.4-10.4) fl Immature Gran % (Auto) 0.3 (0-0.5) % Neut % (Auto) 74.4 H (45.5-73.1) % Lymph % (Auto) 12.4 L (18.3-44.2) % [place] % (Auto) 10.5 H (2.6-8.5) % Eos % (Auto) 1.0 (0-4.4) % Baso % (Auto) 1.4 H (0.2-1.2) % Lymph # (Auto) 0.72 L (0.9-3.2) K/mm3 [place] # (Auto) 0.6 (0.1-0.6) K/mm3 Eos # (Auto) 0.1 (0-0.3) K/mm3 Baso # (Auto) 0.1 (0.0-0.1) K/mm3 Abs Immat Gran (auto) 0.02 (0.00-0.031) K/mm3 Absolute Neuts (auto) 4.3 (1.3-6.7) K/mm3 Absolute Nucleated RBC 0.000 (0.0-0.012) K/mm3 Nucleated RBC % 0.0 (0.0-0.2) % Sodium 135 L (137-145) mmol/L Potassium 3.7 (3.4-5.0) mmol/L Chloride 99 (98-107) mmol/L Carbon Dioxide 27 (22-30) mmol/L Anion Gap 9 (4-12) mmol/L BUN 10 (7-17) mg/dL Creatinine 0.63 L (0.7-1.0) mg/dL Estim Creat Clear Calc 77 ml/min Estimated GFR > 60 (59 - ) Glucose 92 (65-110) mg/dL Calcium 8.9 (8.4-10.2) mg/dL Total Bilirubin 1.3 (0.2-1.3) mg/dL AST 53 H (14-36) U/L ALT 33 (6-35) U/L Alkaline Phosphatase 59 (38-126) U/L Total Protein 9.0 H (6.3-8.2) g/dL Albumin 4.5 (3.5-5.1) g/dL Lipase 106 (23-300) U/L Urine Color Dark yellow (Yellow) Urine Appearance Clear (Clear) Urine pH 5.5 (5.0-9.0) Ur Specific [place] 1.017 (1.001-1.035) Urine Protein Negative (Negative) mg/dL Urine Glucose (UA) Negative (Negative) mg/dL Urine Ketones Negative (Negative) mg/dL Ur Blood (Man) Trace (Negative) Urine Nitrate Negative (Negative) Urine Bilirubin Negative (Negative) Urine Urobilinogen 1.0 (<2.0) mg/dL Leukocyte Esterase Rfl Trace H (Negative) KELLY/UL Urine RBC 0-2 (0-2) /hpf Urine WBC 0-5 (0-3) /hpf Ur Squamous Epith Cells Few (Few) /hpf Urine Bacteria 1+ H /hpf Urine Casts 0-2 Imaging Data Radiologist's impression: Impressions Abdomen/Pelvis CT 09/14/24 12:23 IMPRESSION: 1. No acute intra-abdominal/pelvic process. 2. Small calcified uterine fibroid. 3. IVC filter in expected position. Chest X-Ray 09/14/24 12:23 IMPRESSION: 1. No acute cardiopulmonary disease. Discharge Plan Discharge Clinical Impression: Urinary tract infection Qualifiers: Urinary tract infection type: acute cystitis Hematuria presence: without hematuria Qualified Code(s): N30.00 - Acute cystitis without hematuria Patient Disposition: Home Condition: Stable Instructions: Antibiotic Form Additional Instructions: Start taking the Cephalexin twice daily for 1 week Follow up with your PCP as scheduled IF you develop any worsening symptoms or concerns return to the ER Patient Language: Tajik Prescriptions: New cephalexin 500 mg capsule 500 mg PO Q12H Qty: 14 0RF Follow-up/Referrals: UNKNOWN,DOCTOR [Primary Care Provider] - Time of Disposition: 13:06
[2024-09-14 11:10] LABS: Basophils Absolute Auto 0.1 K/mm3 (0.0-0.1); Basophils Percent Auto 1.4 % (0.2-1.2); Eosinophils Absolute Auto 0.1 K/mm3 (0-0.3); Hematocrit 40.3 % (37.0-47.0); Hemoglobin 13.8 g/dL (12.0-15.0); Immature Granulocyte Absolute 0.02 K/mm3 (0.00-0.031); Immature Granulocyte Percent A 0.3 % (0-0.5); Lymphocytes Absolute Auto 0.72 K/mm3 (0.9-3.2); Lymphocytes Percent Auto 12.4 % (18.3-44.2); Mean Corpuscular HGB Conc 34.2 g/dl (32-36); Mean Corpuscular Hemoglobin 31.9 pg (26-34); Mean Corpuscular Volume 93.1 fl (80-100); Monocytes Absolute Auto 0.6 K/mm3 (0.1-0.6); Monocytes Percent Auto 10.5 % (2.6-8.5); Neutrophils Absolute Auto 4.3 K/mm3 (1.3-6.7); Neutrophils Percent Auto 74.4 % (45.5-73.1); Platelet Count Result 270 k/mm3 (150-375); Red Blood Count 4.33 M/mm3 (4.2-5.4); Red Cell Distribution Width 12.5 % (11.5-14.5); White Blood Count 5.8 K/mm3 (4.5-10.0)
[2024-09-14 11:19] LABS: Add Urine Microscopic? YES; Appearance Urine Clear (Clear); Bacteria Urine 1+ /hpf; Bilirubin Urine Negative (Negative); Blood Urine Trace (Negative); Color Urine Dark Yellow (Yellow); Glucose Urine UA Negative (Negative); Ketones Urine Negative (Negative); Leukocyte Esterase Ur Trace LEU/UL (Negative); Nitrate Urine Negative (Negative); Non Pathogenic Casts 0-2; Protein Urine Negative (Negative); RBC Urine 0-2 /hpf (0-2); Specific Grav Ur 1.017 (1.001-1.035); Squamous Epithelial Cell Urine Few /hpf (Few); WBC Urine 0-5 /hpf (0-3); pH Urine 5.5 (5.0-9.0)
[2024-09-14 11:33] LABS: Alanine Aminotransferase 33 U/L (6-35); Albumin Level 4.5 g/dL (3.5-5.1); Alkaline Phosphatase 59 U/L (38-126); Anion Gap 9 mmol/L (4-12); Aspartate Amino Transferase 53 U/L (14-36); Bilirubin,Total 1.3 mg/dL (0.2-1.3); Blood Urea Nitrogen 10 mg/dL (7-17); Calcium 8.9 mg/dL (8.4-10.2); Carbon Dioxide 27 mmol/L (22-30); Chloride 99 mmol/L (98-107); Estimated CRCL calculation 77 ml/min; Estimated Glomerular Filt Rate > 60; Glucose 92 mg/dL (65-110); Lipase 106 U/L (23-300); Potassium 3.7 mmol/L (3.4-5.0); Sodium 135 mmol/L (137-145)
[2024-09-14] MEDS: MORPHINE SULFATE (*CRX) 4 MG/ML INJ IV PUSH (11:40)
[2024-09-14 13:30] VITALS: BP 153/96; PULSE 77; RESP 18; O2SAT 98
== END 2024-09-14 14:17 | disposition home or self-care (01) ==
PROVIDERS: Emergency Medicine; Emergency Provider Nurse Practitioner Family
DX: N30.00 Acute cystitis without hematuria (principal); Z85.89 Personal history of malignant neoplasm of other organs and systems; E03.9 Hypothyroidism, unspecified; Z86.718 Personal history of other venous thrombosis and embolism
CPT/HCPCS: 36415; 71046; 74177; 80053; 81001; 83690; 85025; 96365; 96375; 99284; J0696; J2270; Q9967